=== PATIENT | female | born 2000 | race Caucasian/White ===

== ENCOUNTER 2023-10-07 10:03 | Outpatient (AMB) | payer OTHER, SELFPAY ==
[2023-10-07 10:10] VITALS: BP 108/60; PULSE 69; TEMP 37.2; O2SAT 99; BMI 26.6
--- NOTE | 2023-10-07 10:10 | A.OFFPC_ITS ---
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 Unknown Last office visit/CPE: Years ago Acute issue(s): Skin?tag ? ?Nerve?damage Dislocated knee several times PMHx: Recurrent, R knee subluxation, SurgHx: R eye surgery trauma. FHx: Mom: HTN, Kyphosis.. Dad: HTN. SocHx: No Cigs. EtOH Rarely. MJ intermittent. No other drugs PFSH Medical History (Updated 10/07/23 @ 10:34 by Gustabo Lorenz) No pertinent past medical history Surgical History (Updated 10/07/23 @ 10:17 by Ivania Tobin CMA) H/O eye surgery Family History (Updated 10/07/23 @ 10:20 by Ivania Tobin CMA) Father Substance abuse in family Mother Substance abuse in family Social History (Updated 10/07/23 @ 10:22 by Ivania Tobin CMA) Household Members: None Both parents involved: No Caregiver staying overnight: No Housing: House Are you a primary healthcare administrative assistant to a significant other at home: No Do you presently have visiting nurse or other home services: No 75 years or older and lives alone: No Alcohol intake: current Comment: on occasion Patient Tobacco Use Status: Never used Tobacco e-Cigarette/Vaping Use: Never Used Use of substances other than those prescribed or required for medical reasons: No Have you been hit, kicked, punched, or otherwise hurt by someone within the past year? If so, by whom?: No Do you feel safe in your current relationship?: No Current Relationship Is there a partner from a previous relationship who is making you feel unsafe now?: No Are you made to feel afraid or neglected: No Special kamlesh needs: No Are you DNR?: No Advance Directives: No Advance Directives Information Provided: No Advance Directives on File: No Healthcare Proxy: No service: No Current occupational status: employed Current occupation: [employer] Cognitive needs: No Hearing needs: No Vision needs: No Female Reproductive History Menstrual Age of Menarche: 16 Date of last menstrual period: 09/16/23 Questionnaire PHQ-9 Over the last 2 weeks, how often have you been bothered by any of the following problems? 1. Little interest or pleasure in doing things: not at all 2. Feeling down, depressed, or hopeless: not at all 3. Trouble falling or staying asleep, or sleeping too much: not at all 4. Feeling tired or having little energy: not at all 5. Poor appetite or overeating: not at all 6. Feeling bad about yourself - or that you are a failure or have let yourself or your family down: not at all 7. Trouble concentrating on things, such as reading the newspaper or watching television: not at all 8. Moving or speaking so slowly that other people could have noticed. Or the opposite - being so fidgety or restless that you have been moving around a lot more than usual: not at all 9. Thoughts that you would be better off or of hurting yourself in some way: not at all Total score: 0 Depression Screening Interpretation: Negative Depression Screening Done: Yes 54937 - PHQ-9 Billing: Yes Source: Developed by Drs. Tremaine Bhatt, Shante Stone, Maximino Osullivan and colleagues, with an educational rosalinda from [employer]. Thrive Questionnaire Date Thrive assessed: 10/07/23 I am a: Patient What is your living situation today?: I have a steady place to live Within the past 12 months, did the food you bought not last and you didn't have the money to get more?: Never true Within the past 12 months, did you worry whether your food would run out before you got money to buy more?: Never true Do you have trouble paying for medicines?: No Do you have trouble getting transportation to medical appointments?: No Do you have trouble paying your heating and electricity bill?: No Do you have trouble taking care of your child, family member or friend?: No Do you have trouble with day-to-day activities such as bathing, preparing meals, shopping, managing finances, etc.?: No Are you currently unemployed and looking for a job?: No Are you interested in more education?: No THRIVE Score: 0 AUDIT C Alcohol Use Questionnaire (AUDIT-C) 1. How often do you have a drink containing alcohol?: Monthly or less 2. How many drinks containing alcohol do you have on a typical day when you are drinking?: 1 or 2 3. How often do you have six or more drinks on one occasion?: Never Total Score: 1 MARLI-7 AMB Questionnaire MARLI-7 Date MARLI - 7 assessed: 10/07/23 Feeling nervous, anxious, or on edge: 0 = Not at all Not being able to stop or control worryin = Not at all Worrying too much about different things: 0 = Not at all Trouble relaxin = Not at all Being so restless that it is hard to sit still: 0 = Not at all Becoming easily annoyed or irritable: 0 = Not at all Feeling afraid as if something awful might happen: 0 = Not at all Total MARLI-7 score (0-4 normal; 5-9 mild; 10-14 moderate; 15-21 severe): 0 Source: Developed by Drs. Tremaine Bhatt, Shante Stone, Maximino Osullivan and colleagues, with an educational rosalinda from [employer]. MARLI-7 Assessment Billing MARLI-7 Assessment Tool: MARLI-7 Assessment 69526 Review of Systems Const Denies chills, Denies fatigue, Denies fever(s), Denies headache(s) and Denies weakness ENT Denies dizziness and Denies headache(s) Card Denies chest pain, Denies lightheadedness, Denies dyspnea and Denies other (Palpitations) Resp Denies cough, Denies dyspnea, Denies wheezing and Denies other ( shortness of breath) Musc Denies numbness and Denies tingling Neuro Denies dizziness, Denies headache(s), Denies numbness, Denies tingling, Denies p aresthesias and Denies weakness Psych Denies anxiety and Denies depression Endo Denies fatigue Aller/Immun Denies wheezing Physical exam (Primary Care) BMI result Body Mass Index 26.6 Tobacco/Smoking Status: Tobacco use Status Tobacco use date assessed 10/07/23 10/07/23 10:18 Patient Tobacco Use Status Never used Tobacco 10/07/23 10:22 e-Cigarette/Vaping Use Never Used 10/07/23 10:22 Depression Screening Interpretation: Negative Const General: no acute distress and well developed Nutritional Appearance: well nourished Orientation/consciousness: patient oriented x3 HENMT Head: Yes normocephalic and Yes atraumatic Eyes General: appearance normal, both eyes and all related structures Pupils: Equal, round and reactive pupils present EOM: EOMs intact bilaterally Resp Effort & Inspection: normal respiratory effort Auscultation: clear to auscultation bilaterally Cardio Rate: regular rate Rhythm: regular rhythm Heart sounds: S1 normal heart sound present, S2 normal heart sound present, no gallops, no murmurs and no rubs Neuro General: patient oriented x3 and gait normal Cranial nerves: Yes Equal, round and reactive pupils present Psych Affect: normal affect Assessment and Plan Assessment & Plan (1) Skin tag: Code(s): L91.8 - Other hypertrophic disorders of the skin Plan: She?can?schedule?an?appointment?for?ligation?and/or?cryotherapy (2) Recurrent subluxation of patella: Code(s): M22.10 - Recurrent subluxation of patella, unspecified knee Plan: Recurrent?subluxation?of?right?patella?which?is?currently?reduced. She?wears?a?brace?and?notes?pain?and?numbness?distal?to?her?knee Referred?to?Ortho (3) Laboratory exam ordered as part of routine general medical examination: Code(s): Z00.00 - Encounter for general adult medical examination without abnormal findings Plan: Check?labs Orders: Orders Comprehensive [place]. Panel Fast Today Z00.00 - Encounter for general adult medical examination without abnormal findings Lipid Panel Today Z00.00 - Encounter for general adult medical examination without abnormal findings Prostate Specific Antigen Scr Today Z12.5 - Encounter for screening for malignant neoplasm of prostate TSH reflex Free T4 Today Z00.00 - Encounter for general adult medical examination without abnormal findings Vitamin D 25-OH Total Today E55.9 - Vitamin D deficiency, unspecified Complete Blood Count Auto Diff Today Z00.00 - Encounter for general adult medical examination without abnormal findings Microalbumin, Random (w Creat) Today I10 - Essential (primary) hypertension UA and rflx microscopic Today Z00.00 - Encounter for general adult medical examination without abnormal findings IRON PROFILE Today Z00.00 - Encounter for general adult medical examination without abnormal findings Referrals Orthopedics Referral M22.10 - Recurrent subluxation of patella, unspecified knee Coding Level of Care Code New Pt Level 3 (86351) Diagnoses Skin tag L91.8 Recurrent subluxation of patella M22.10 Laboratory exam ordered as part of routine general medical examination Z00.00 Additional Codes MARLI-7 Assessment Billing - MARLI-7 Assessment Tool: MARLI-7 Assessment [id number] ([id number])
== END 2023-10-07 10:51 | disposition home or self-care (01) ==
PROVIDERS: PCP Family Medicine; Visit Provider Family Medicine
DX: L91.8 Other hypertrophic disorders of the skin (principal); M22.10 Recurrent subluxation of patella, unspecified knee; Z00.00 Encounter for general adult medical examination without abnormal findings
CPT/HCPCS: 99203

== ENCOUNTER 2023-10-07 10:53 | Outpatient (REF) | payer OTHER, SELFPAY ==
[2023-10-07 14:20] LABS: MANUAL DIFF FLAG NO
[2023-10-07 14:23] LABS: Basophils Percent Auto 0.5 % (0-2); Eosinophils Percent Auto 0.7 % (0-4); Hematocrit 39.7 % (37.0-47.0); Hemoglobin 13.5 g/dl (12.0-16.0); Imm Gran Abs Auto 0.02 X10*3/uL (0.00-0.03); Imm Gran Pct Auto 0.4 % (0.0-0.4); Lymphocytes Absolute Auto 1.9 X10*3/uL (1.2-4.9); Lymphocytes Percent Auto 32.8 % (20-40); Mean Corpuscular Hemoglobin 34.6 pg (27.0-33.0); Mean Corpuscular Volume 101.8 fL (80.0-98.0); Mean Platelet Volume 9.8 fL (9.4-12.3); Monocytes Absolute Auto 0.4 X10*3/uL (0.1-1.2); Monocytes Percent Auto 7.6 % (2-11); Neutrophils Absolute Auto 3.3 x10*3/uL (2.0-8.3); Platelet Count 203 X10*3/uL (160-400); Red Cell Distribution Width 12.8 % (11.0-16.0); White Blood Count 5.6 X10*3/uL (4.8-10.8)
[2023-10-07 14:28] LABS: Appearance Urine Clear; Color Urine Yellow; Glucose Urine UA Negative (Negative); Leukocyte Esterase Urine Negative (Negative); Nitrite Urine Negative (Negative); Urine Blood Negative (Negative); Urine Ketones Negative (Negative); Urine Protein Negative (Neg-Trace)
[2023-10-07 14:34] LABS: Creatinine Urine 85.16 mg/dL; Microalbumin Urine < 5.0 mg/L
[2023-10-07 14:47] LABS: Alanine Aminotransferase 18 U/L (0-31); Albumin Level 4.1 g/dL (3.5-5.0); Alkaline Phosphatase 43 U/L (39-117); Anion Gap 8 (12-20); Aspartate Amino Transferase 42 U/L (5-31); Bilirubin Total 0.7 mg/dL (0.0-1.0); Blood Urea Nitrogen 15 mg/dL (9-16); Calcium 9.2 mg/dL (8.4-10.2); Carbon Dioxide 25 mmol/L (22-29); Chloride 108 mmol/L (96-108); Cholesterol 148 mg/dL (<200); Estimated Glomerular Filt Rate > 60; Glucose Fasting 76 mg/dL (60-99); HDL Cholesterol 64 mg/dL (>40); Iron 83 mcg/dL (30-160); LDL Cholesterol Calculated 77 mg/dL (<100); Percent Iron Saturation 29 % (15-50); Potassium 4.2 mmol/L (3.3-5.1); Sodium 137 mmol/L (135-145); Total Iron Binding Capacity 284 mcg/dL (228-428); Total Protein 7.3 g/dL (6.5-8.0); Triglycerides 38 mg/dL (<150); Unsaturated Iron Binding 201 ug/dL
[2023-10-07 15:03] LABS: TSH reflex Free T4 1.92 uIU/mL (0.32-4.0); Vitamin D 25-OH Total 8.4 ng/mL (>30)
[2023-12-28 06:58] LABS: Prostate Specific Antigen Scr < 0.10 ng/mL
== END 2023-10-07 10:54 | disposition home or self-care (01) ==
LOC: HO.WFDLDS 10:53
PROVIDERS: Visit Provider Family Medicine
DX: Z00.00 Encounter for general adult medical examination without abnormal findings (principal); E55.9 Vitamin D deficiency, unspecified; I10 Essential (primary) hypertension
CPT/HCPCS: 36415; 80053; 80061; 81003; 82306; 82570; 83540; 84153; 84443; 85025

== ENCOUNTER 2023-10-29 09:10 | Outpatient (REF) | payer OTHER, SELFPAY | END 2023-10-29 09:11 | disposition home or self-care (01) | LOC: HO.HOSX 09:10 | PROVIDERS: Visit Provider Physician Assistant | DX: Z13.89 Encounter for screening for other disorder (principal) ==

== ENCOUNTER 2024-02-17 08:17 | Outpatient (REF) | payer OTHER, SELFPAY | END 2024-02-17 08:18 | disposition home or self-care (01) | LOC: HO.HOSX 08:17 | PROVIDERS: Visit Provider Orthopaedic Surgery | DX: Z13.89 Encounter for screening for other disorder (principal) ==

== ENCOUNTER 2024-08-25 12:23 | Outpatient (REF) | payer BC, SELFPAY ==
--- OUTSIDE RECORDS SUMMARY | 2024-08-25 13:43 | XMS_ITS | Encounter Summary ---
Author Organization [facility] Address [address] [place] [address] Phone Care Team Providers Care Cube Machine Tender Name Role Phone Provider, Dawood LOVELL Primary Care Provider [phone] Encounter Details Date Type Department Care Team (Late st Contact Info) Description 08/21/2016 Documentation [facility] [place] [address] [place] [address] Family Medicine, Physician [address] [place] [phone] Social History Tobacco Use Types Packs/Day Years [...] on filedocumented in this encounter Care Teams Cube Machine Tender Relationship Specialty Start Date End Date Provider, MD Dawood [address] [place] [address] PCP - General Pediatrics 01/15/22 08/18/22 documented as of this encounter
--- OUTSIDE RECORDS SUMMARY | 2024-08-25 13:43 | XMS_ITS | Encounter Summary ---
Author Organization [facility] Address [address] [place] [address] Phone Care Team Providers Care Grocery Deliverer Name Role Phone Provider, Dawood LOVELL Primary Care Provider [phone] Encounter Details Date Type Department Care Team (Late st Contact Info) Description 07/17/2015 Documentation [facility] [address] [place] [address] Family Medicine, Physician [address], [place] [phone] Social History Tobacco Use Types Packs/Day Years [...] on filedocumented in this encounter Care Teams Grocery Deliverer Relationship Specialty Start Date End Date Provider, MD Dawood [address] [place] [address] PCP - General Pediatrics 01/15/22 08/18/22 documented as of this encounter
--- OUTSIDE RECORDS SUMMARY | 2024-08-25 13:43 | XMS_ITS | Encounter Summary ---
Author Organization [facility] Address [address] [place] [address] Phone Care Team Providers Care Teacher Ballet Name Role Phone Provider, Dawood LOVELL Primary Care Provider [phone] Encounter Details Date Type Department Care Team (Late st Contact Info) Description 08/21/2016 Documentation [facility] Family Medicine [address] [place] [address] Family Medicine, Physician [address] [place], [place] [phone] Social History Tobacco Use Types Packs/Day Years [...] on filedocumented in this encounter Care Teams Teacher Ballet Relationship Specialty Start Date End Date Provider, MD Dawood [address] [place] [address] PCP - General Pediatrics 01/15/22 08/18/22 documented as of this encounter
--- OUTSIDE RECORDS SUMMARY | 2024-08-25 13:43 | XMS_ITS | Encounter Summary ---
Author Organization [facility] Address [address] [place] [address] Phone Care Team Providers Care Medical Coordinator Pesticide Use Name Role Phone Provider, Dawood LOVELL Primary Care Provider Encounter Details Date Type Department Care Team (Late st Contact Info) Description 08/21/2016 Documentation [facility] Family Medicine [address] [place] [address] Family Medicine, Physician [address] [place], [place] [phone] Social History Tobacco Use Types Packs/Day Years [...] on filedocumented in this encounter Care Teams Medical Coordinator Pesticide Use Relationship Specialty Start Date End Date Provider, MD Dawood [address] [place] [address] PCP - General Pediatrics 01/15/22 08/18/22 documented as of this encounter
--- OUTSIDE RECORDS SUMMARY | 2024-08-25 13:43 | XMS_ITS | Encounter Summary ---
Author Organization [facility] Address [address] [place] [address] Phone Care Team Providers Care Tape Cutter Name Role Phone ProviderDawood MD Primary Care Provider Encounter Details Date Type Department Care Team (Late st Contact Info) Description 11/21/2017 Conversion Encounter [facility] [address] [place] [address] Alexandra Cervantes MD [address] [place] [id number] Social History Tobacco Use Types Packs/Day Years [...] on filedocumented in this encounter Care Teams Tape Cutter Relationship Specialty Start Date End Date Provider, MD Dawood [address] [place] [phone] PCP - General Pediatrics 01/15/22 08/18/22 documented as of this encounter
--- OUTSIDE RECORDS SUMMARY | 2024-08-25 13:43 | XMS_ITS | Encounter Summary ---
Author Organization [facility] Address [address] [place] [address] Phone Care Team Providers Care Railway Yard Assistant Name Role Phone Provider, Dawood LOVELL Primary Care Provider [phone] Encounter Details Date Type Department Care Team (Late st Contact Info) Description 08/14/2009 Documentation [facility] [address] [place] [address] Family Medicine, Physician [address], [place] [phone] Social History Tobacco Use Types Packs/Day Years [...] on filedocumented in this encounter Care Teams Railway Yard Assistant Relationship Specialty Start Date End Date Provider, MD Dawood [address] [place] [address] PCP - General Pediatrics 01/15/22 08/18/22 documented as of this encounter
--- OUTSIDE RECORDS SUMMARY | 2024-08-25 13:43 | XMS_ITS | Clinical Summary ---
Author Organization [facility] Address [address] [place] [address] Phone Care Team Providers Care Rv Repairer Name Role Phone Unavailable Primary Care Provider [...] regular cycle 03/10/2018 Overview (03/10/2018): Followed by [facility] provider in [place]. Mom aware pt is on OCPs. Body [...] Completed 03/16/2019, 015 Procedures * Due to [facility] law, this organization might not be sharing sensitive test results. Procedure Name Priority Date/Time Associated Diagnosis Comments CHLAMYDIA AND GONORRHEA, AMPLIFIED Routine 03/16/2019 11:29 AM EDT Screening examination for bacterial and spirochetal disease from Last 3 Months or Most Recently Relevant to Health Maintenance Results * Due to [facility] law, this organization might not be sharing sensitive test results. * Chlamydia and Gonorrhoea, Amplified (03/16/2019 11:29 AM EDT) Chlamydia Trachomatis, DNA Probe NEGATIVE (NEG) [facility] Comment: No Chlamydia Trachomatis RNA detected in this patient's sample ? (REFERENCE RANGE/NORMAL VALUE: NOT DETECTED) ? Note: This test uses diesel engine inspector- mediated amplification method to detect rRNA from C. Trachomatis URINE GC AMP PROBE NEGATIVE (NEG) [facility] Comment: No Neisseria Gonorrhoeae RNA detected in this patient's sample ? (REFERENCE RANGE/NORMAL VALUE: NOT DETECTED) ? NOTE: This test uses diesel engine inspector-mediated amplification method to detect rRNA from N.Gonorrhoeae. [...] without risk of sexual abuse. Consult the [facility] if needed. Contact phone number . Therapeutic failure or success cannot be determined with the Aptima Combo2 assay since nucleic acid may persist following appropriate antimicrobial therapy. The Centers for Disease Control and Prevention (CDC) recommends confirmatory retesting using culture or a different nucleic acid amplification test when positive results occur, if indicated. Testing performed or reported by [facility], a Service of [facility], [address] [place] [address] [place] [address] Urine 03/16/2019 11:2 9 AM EDT 03/16/2019 4:39 PM EDT us Aliyah Nunez NP LAB MICROBIOLOGY - GENERA L ORDERABLES Final Result [facility] from Last 3 Months or Most Recently Relevant to Health Maintenance Insurance [facility] NON PCC
--- OUTSIDE RECORDS SUMMARY | 2024-08-25 13:43 | XMS_ITS | Encounter Summary ---
Author Organization [facility] Address [address] [place] [address] Phone Care Team Providers Care Care Technician Name Role Phone Provider, Dawood LOVELL Primary Care Provider [phone] Encounter Details Date Type Department Care Team (Late st Contact Info) Description 07/17/2015 Documentation EM Family Medicine [address] [place] [address] Family Medicine, Physician [address], [place] [phone] Social History Tobacco Use Types Packs/Day Years [...] on filedocumented in this encounter Care Teams Care Technician Relationship Specialty Start Date End Date Provider, MD [address] [place] [address] PCP - General Pediatrics 01/15/22 08/18/22 documented as of this encounter
--- OUTSIDE RECORDS SUMMARY | 2024-08-25 13:43 | XMS_ITS | Encounter Summary ---
Author Organization [facility] Address [address] [place] [address] Phone Care Team Providers Care Credit Risk Analyst Name Role Phone Provider, Dawood LOVELL Primary Care Provider [phone] Encounter Details Date Type Department Care Team (Late st Contact Info) Description 07/17/2015 Documentation EM Family Medicine [address] [place] [address] Family Medicine, Physician [address] [phone] Social History Tobacco Use Types Packs/Day Years [...] on filedocumented in this encounter Care Teams Credit Risk Analyst Relationship Specialty Start Date End Date Provider, MD [address] [place] [address] PCP - General Pediatrics 01/15/22 08/18/22 documented as of this encounter
--- OUTSIDE RECORDS SUMMARY | 2024-08-25 13:43 | XMS_ITS | Encounter Summary ---
Author Organization [facility] Address [address] [place] [address] Phone Care Team Providers Care Home And Family Living Professor Name Role Phone Provider, Dawood LOVELL Primary Care Provider [phone] Encounter Details Date Type Department Care Team (Late st Contact Info) Description 07/17/2015 Documentation EM Family Medicine [address] [place] [address] Family Medicine, Physician [address] [place], [place] [phone] Social History Tobacco Use Types Packs/Day Years [...] on filedocumented in this encounter Care Teams Home And Family Living Professor Relationship Specialty Start Date End Date Provider, MD [address]wood [address] [place] [address] PCP - General Pediatrics 01/15/22 08/18/22 documented as of this encounter
--- OUTSIDE RECORDS SUMMARY | 2024-08-25 13:43 | XMS_ITS | Encounter Summary ---
Author Organization [facility] Address [address] [place] [address] Phone Care Team Providers Care Shade Maker Name Role Phone Provider, Dawood LOVELL Primary Care Provider [phone] Encounter Details Date Type Department Care Team (Late st Contact Info) Description 02/18/2017 Conversion Encounter [facility] [address] [phone] Social History Tobacco Use Types Packs/Day Years [...] on filedocumented in this encounter Care Teams Shade Maker Relationship Specialty Start Date End Date Provider, MD [address] [place] [address] PCP - General Pediatrics 01/15/22 08/18/22 documented as of this encounter
[2024-08-25 18:17] LABS: Influenza A PCR NEGATIVE (Negative); Influenza B PCR NEGATIVE (Negative); Resp Syncy Virus RNA Qual PCR POSITIVE (Negative); SARS COV2 PCR INHOUSE NEGATIVE (Negative)
== END 2024-08-25 12:24 | disposition home or self-care (01) ==
LOC: HO.LAB 12:23
PROVIDERS: PCP Family Medicine; Visit Provider Nurse Practitioner Family
DX: J06.9 Acute upper respiratory infection, unspecified (principal)
CPT/HCPCS: 0241U; 87880

== ENCOUNTER 2024-08-25 12:23 | Outpatient (AMB) | payer BC, SELFPAY ==
--- NOTE | 2024-08-25 12:29 | MHC.PC.OV ---
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 Required: No Is last menstrual period known: Yes Last menstrual period: 08/22/24 Post menopausal: No Patient : No Allergies No Known Allergies Allergy (Verified 08/25/24 13:05) Medication List - Last Reconciled 08/25/24 by Trish He CNP ferrous sulfate (Feosol) 325 mg PO DAILY magnesium 200 mg PO DAILY Tobacco use date assessed: 08/25/24 Dental Screening Dental Screen Date: 08/25/24 Did you have a dental visit in the last 12 months?: Yes Did you have a dental problem in the last 6 months where you did not have access to dental care?: No Was dental information given to patient?: Patient has dentist HPI HPI Comments History of Present Illness Details 24-year-old female presents complaints of a sore throat, frontal headache, and runny nose and nasal congestion. Her symptoms have been going on for the past 4 days and have progressively worsened. She notes associated intermittent feeling of hot cold. She denies cough, chest pain, fever, body aches, fatigue, weakness. She denies positive sick contact. She has not had viral testing for COVID, flu, or RSV. [facility] Medical History (Updated 08/25/24 @ 13:15 by Trish He CNP) No pertinent past medical history Surgical History (Updated 10/07/23 @ 10:17 by Ivania Tobin CMA) H/O eye surgery Family History (Updated 10/07/23 @ 10:20 by Ivania Tobin CMA) Father Substance abuse in family Mother Substance abuse in family Social History (Updated 10/07/23 @ 10:22 by Ivania Tobin CMA) Household Members: None Both parents involved: No Caregiver staying overnight: No Housing: House Are you a primary long term care phlebotomist to a significant other at home: No Do you presently have visiting nurse or other home services: No 75 years or older and lives alone: No Alcohol intake: current Comment: on occasion Patient Tobacco Use Status: Never used Tobacco e-Cigarette/Vaping Use: Never Used Special kamlesh needs: No Patient : No service: No Current occupational status: employed Current occupation: [employer] Cognitive needs: No Hearing needs: No Vision needs: No Female Reproductive History Menstrual Age of Menarche: 16 Date of last menstrual period: 08/22/24 Questionnaire PHQ-9 Over the last 2 weeks, how often have you been bothered by any of the following problems? 1. Little interest or pleasure in doing things: not at all 2. Feeling down, depressed, or hopeless: not at all 3. Trouble falling or staying asleep, or sleeping too much: not at all 4. Feeling tired or having little energy: not at all 5. Poor appetite or overeating: not at all 6. Feeling bad about yourself - or that you are a failure or have let yourself or your family down: not at all 7. Trouble concentrating on things, such as reading the newspaper or watching television: not at all 8. Moving or speaking so slowly that other people could have noticed. Or the opposite - being so fidgety or restless that you have been moving around a lot more than usual: not at all 9. Thoughts that you would be better off or of hurting yourself in some way: not at all Total score: 0 Depression Screening Interpretation: Negative Depression Screening Done: Yes Source: Developed by Drs. Tremaine Bhatt, Shante Stone, Maximino Osullivan and colleagues, with an educational rosalinda from [employer]. Thrive Questionnaire Date Thrive assessed: 10/07/23 I am a: Patient What is your living situation today?: I have a steady place to live Within the past 12 months, did the food you bought not last and you didn't have the money to get more?: Never true Within the past 12 months, did you worry whether your food would run out before you got money to buy more?: Never true Do you have trouble paying for medicines?: No Do you have trouble getting transportation to medical appointments?: No Do you have trouble paying your heating and electricity bill?: No Do you have trouble taking care of your child, family member or friend?: No Do you have trouble with day-to-day activities such as bathing, preparing meals, shopping, managing finances, etc.?: No Are you currently unemployed and looking for a job?: No Are you interested in more education?: No Please select the resources that you would like help with: None Currently or been in a relationship where the following occur: No concerns reported THRIVE Score: 0 AUDIT C Alcohol Use Questionnaire (AUDIT-C) 1. How often do you have a drink containing alcohol?: 2-4 times a month 2. How many drinks containing alcohol do you have on a typical day when you are drinking?: 1 or 2 3. How often do you have six or more drinks on one occasion?: Never Total Score: 2 MARLI-7 AMB Questionnaire MARLI-7 Date MARLI - 7 assessed: 10/07/23 Feeling nervous, anxious, or on edge: 0 = Not at all Not being able to stop or control worryin = Not at all Worrying too much about different things: 0 = Not at all Trouble relaxin = Not at all Being so restless that it is hard to sit still: 0 = Not at all Becoming easily annoyed or irritable: 0 = Not at all Feeling afraid as if something awful might happen: 0 = Not at all Total MARLI-7 score (0-4 normal; 5-9 mild; 10-14 moderate; 15-21 severe): 0 Source: Developed by Drs. Tremaine Bhatt, Shante Stone, Maximino Osullivan and colleagues, with an educational rosalinda from [employer]. Review of Systems Const Details: Const Denies chills, Denies fatigue, Denies fever(s), Reports headache(s) and Denies weakness ENT Reports as per HPI Card Denies chest pain, Denies lightheadedness, Denies dyspnea and Denies other (Palpitations) Resp Denies cough, Denies dyspnea, Denies wheezing and Denies other ( shortness of breath) GI Denies abdominal pain, Denies melena, Denies hematochezia, Denies change in bowel habits, Denies dyspepsia and Denies nausea Denies hematuria and Denies dysuria Musc Denies abnormal gait, Denies myalgias, Denies arthralgias, Denies numbness and Denies tingling Skin/Breast Denies rash, Denies unusual bruising and Denies wounds Neuro Denies abnormal gait, Denies dizziness, Reports headache(s), Denies memory loss, Denies numbness, Denies Sensory deficit (Neuro), Denies tingling and Denies weakness Psych Denies anxiety, Denies depression, Denies memory loss Endo Denies cold intolerance, Denies fatigue, Denies heat intolerance, Denies polydipsia and Denies polyuria Aller/Immun Denies wheezing Physical exam (Primary Care) Vital Signs: Last Vital Signs Temp 98.1 F 08/25/24 12:34 Pulse 76 08/25/24 12:34 Resp 16 08/25/24 12:34 BP 122/56 L 08/25/24 12:34 Pulse Ox 99 08/25/24 12:34 Oxygen Delivery Method Simple Mask 08/25/24 12:34 BMI result Body Mass Index 30.6 Tobacco/Smoking Status: Tobacco use Status Tobacco use date assessed 08/25/24 08/25/24 12:37 Patient Tobacco Use Status Never used Tobacco 08/25/24 12:31 e-Cigarette/Vaping Use Never Used 08/25/24 12:31 PHQ-9: PHQ-9 Score PHQ-9: Total score 0 08/25/24 12:31 Depression Screening Interpretation: Negative Thrive Assessment: Date of Thrive Assessment Date Thrive assessed 10/07/23 08/25/24 12:31 Currently or been in a relationship where the following occur: No concerns reported Const Other: General: no acute distress and well developed Nutritional Appearance: well nourished Orientation/consciousness: patient oriented x3 HENMT Head is normocephalic Bilateral ear canal and TM are normal Nasal turbinates and oropharynx are pink and moist Sinuses are nontender with palpation No auricular or cervical lymphadenopathy Eyes General: appearance normal, both eyes and all related structures Pupils: Equal, round and reactive pupils present EOM: EOMs intact bilaterally Resp Effort & Inspection: normal respiratory effort Auscultation: clear to auscultation bilaterally Cardio Rate: regular rate Rhythm: regular rhythm Heart sounds: S1 normal heart sound present, S2 normal heart sound present, no gallops, no murmurs and no rubs GI Palpation (GI): No Abdominal aortic bruit present, Soft to palpation, nontender, No hepatosplenomegaly present and No Rebound tenderness present Auscultation: normal bowel sounds General: Yes no CVA tenderness Back/Spine/Pelvis Back: no CVA tenderness Cervical Spine: cervical ROM normal and No Cervical spine tenderness Thoracic/Lumbar Spine: thoraco-lumbar ROM normal, No pain with thoraco-lumbar ROM, No thoracic spinal tenderness and No lumbar spinal tenderness Extrem General: Yes normal to inspection, No edema and No calf tenderness Skin General: warm and dry. Normal skin color. Normal skin turgor Neuro General: patient oriented x3, gait normal and no focal neuro deficit Cranial nerves: Yes Equal, round and reactive pupils present Cognition (Neuro): normal cognition Gait exam (Neuro): Normal gait present Sensory Exam: No Sensory deficit (Neuro) Psych Appearance: grossly normal Affect: normal affect Attitude: cooperative Thought process: Normal thought process present Results AMB Rapid Strep AMB Rapid Strep Negative Last Edit by Cordelia Sandhu on 08/25/24 13:30 Coding Level of Care Code Est Pt Level 3 (04154) Diagnoses Viral upper respiratory illness J06.9 Assessment & Plan Assessment & Plan (1) Viral upper respiratory illness: Code(s): J06.9 - Acute upper respiratory infection, unspecified Category: Medical Plan: Likely viral illness though possibly allergies No exam evidence of bacterial infection Rapid strep test is negative. Viral illness There is no antibiotic medication for viruses.? They must run their course.? Most average 5-7 days but 7-10 days is not uncommon and up to 14 days is still possible.? A cough is often the last symptom to resolve and this can last for weeks in some cases. Rest Hydrate well -? Drink plenty of fluids.? Especially water. Tylenol or ibuprofen for muscle aches, headache, fever/discomfort May gargle with lukewarm salt water as needed May take antihistamine such as Claritin or Zyrtec once a day Cannot rule out COVID-19/RSV/Flu infection Nasal swab acquired and will be sent to the lab Return for new or worsening symptoms Verbalized understanding and agreed with treatment plan. Orders: Orders SARS-CoV2/FLU/RSV Today J06.9 - Acute upper respiratory infection, unspecified AMB Rapid Strep Screen Today Z13.9 - Encounter for screening, unspecified
[2024-08-25 12:34] VITALS: BP 122/56; PULSE 76; RESP 16; TEMP 36.7; O2SAT 99; BMI 30.6
--- OUTSIDE RECORDS SUMMARY | 2024-08-25 13:04 | XMS_ITS | Encounter Summary ---
Author Organization [facility] Address [address] [place] [address] Phone Care Team Providers Care Dockworker Name Role Phone Provider, Dawood LOVELL Primary Care Provider [phone] Encounter Details Date Type Department Care Team (Late st Contact Info) Description 08/21/2016 Documentation [facility] [place] Family Medicine [address] [place] [address] Family Medicine, Physician [address], [place] [id number] Social History Tobacco Use Types Packs/Day Years Used Date Smoking Tobacco: Never Assessed Comments Unknown Sex and Gender Information Value Date Recorded Sex Assigned at Not on file Legal Sex Female 6:12 PM EDT Gender Identity Not on file Sexual Orientation Straight 03/16/2019 11 :17 AM EDT documented as of this encounter Plan of Treatment Not on file documented as of this encounter Visit Diagnoses Not on filedocumented in this encounter Care Teams Dockworker Relationship Specialty Start Date End Date Provider, MD Dawood [address] [place] [address] PCP - General Pediatrics 01/15/22 08/18/22 documented as of this encounter
--- OUTSIDE RECORDS SUMMARY | 2024-08-25 13:04 | XMS_ITS | Clinical Summary ---
Author Organization [facility] Address [address] [place] [phone] Phone Care Team Providers Care Regional Wildlife Agent Name Role Phone Unavailable Primary Care Provider Unavailabl e Allergies No known active allergies Medications CRYSELLE-28 0.3-30 MG-MCG per tablet Take 1 tablet by mouth once daily. 3 02/11/2018 Active TRI-ESTARYLLA 0.18/0.215/0.25 MG-35 MCG per tablet Take 1 tablet by mouth once daily. 5 05/05/2019 Active Active Problems Problem Noted Date Diagnosed Date Influenza vaccine refused 03/16/2019 Overview (03/16/2019): Offered at 03/2019 but declined by mom today, counseling offered, questions answered. Menorrhagia with regular cycle 03/10/2018 Overview (03/10/2018): Followed by LAYOUT TECHNICIAN provider in [place]. Mom aware pt is on OCPs. Body mass index, pediatric, greater than or equal to 95th percentile for age 0701/04/2013 Immunizations Immunization Administration Dates Next Due DTaP 04/26/2008, 4,2002,10/24,2002 HPV Vaccine 9 Valent 08/20/2016,06/06/2015 Hep A, ped/adol 08/20/2016,06/06/2015 Hep B, ped/adol 03/27/2003,2002,2002 Hib (PRP-T) 10/01/2003, 3,2002,08/25 IPV 04/26/2008, 3,2002,08/25 Influenza, injectable, quadrivalent 04/29/2011,1 08/07/2009,04/26/2008 Influenza, injectable, quadr ivalent, preservative free 03/15/2020,04/26/2008 Influenza, injectable, triva lent, preservative free 08/05/2004,04/25/2004 Influenza, injectable,nona valent, preservative free, pediatric 08/05/2004,04/25/2004 Influenza, intranasal, quadrivalent 06/06/2015 MMR 04/26/2008,06/20/2003 Meningococcal Conj (Menactra) MCV4P 03/16/2019,1 08/07/2014 Pneumococcal Conjugate 2002,2002, Tdap 06/06/2015 Varicella 04/26/2008,06/20/2003 Family History Relation Name Status Comments Father Alive age: 31 yr Father's Brother Alive Father's Sister Alive Maternal Grandfather cancer/ pancreatic Maternal Grandmother Alive Materna l grandmother: Hypertension, Stroke (passed 1.5 yr ago)/hypertension Mother Alive Mother: Asthma/ asthma/ kyphosis/scoliosis + braced age: 37 yr Other Alive Siblings: Healt hy Paternal Grandfather Alive Paternal Grandmother Alive Paterna l grandmother: Thyroid disease/thyroid Social History Tobacco Use Types Packs/Day Years Used Date Smoking Tobacco: Never Smokeless Tobacco: Never Comments:Never smoker Alcohol Use Standard Drinks/Week Comments No 0 (1 standard drink = 0.6 oz pur e alcohol) Hunger/Food Answer Date Recorded In the last 12 months, did y ou or your family ever eat less than you felt you should because there wasn't enough money for food? No 03/16/2019 Stable Housing Answer Date Recorded Are you worried that in the next 2 months you may not have stable housing? No 03/16/2019 Transportation Concerns Answer Date Rec orded In the last 12 months, have you or your family ever had to go without healthcare because you didn't have a way to get there? No 03/16/2019 Hazards in Home Answer Date Recorded Think about the place you li ve. Do you have problems with any of the following? Pests (mice or roaches), mold, no/not working smoke detectors, water leaks, no window guards. No 2018 Financing Utilities Answer Date Recorde d In the last 12 months, has t he electric, gas, oil, or water company threatened to shut off your services in your home? No 03/16/2019 Safety at Home Answer Date Recorded Are you or your family worried about feeling saf e in your home? No 03/16/2019 Outside Support Answer Date Recorded Do you feel that you need mo re support from other people or programs to help you care for yourself or your family? No 03/16/2019 Understanding Health Concerns Answer Da te Recorded Do you need help understandi ng your or your child's healthcare needs (diagnosis, medications, plan, etc.)? No 03/16/2019 Financing Health Concerns Answer Date R ecorded In the last 12 months, was t here a time when your child needed to see a doctor or get medications or supplies but could not because of cost? No 03/16/2019 Missing School or Work Answer Date Saw rded Did you or your child miss s chool or work because of a health problem that could have been avoided? No 03/16/2019 Comments Unknown Sex and Gender Information Value Date Recorded Sex Assigned at Not on file Legal Sex Female 6:12 PM EDT Gender Identity Not on file Sexual Orientation Straight 03/16/2019 11 :17 AM EDT Last Filed Vital Signs Vital Sign Reading Time Taken Comments Blood Pressure 115/79 07/11/2019 11:53 AM EST Pulse 94 07/11/2019 11:53 AM EST Temperature 37.3 ??C (99.2 ??F) 07/11/2019 11:[address] Respiratory Rate - - Oxygen Saturation - - Inhaled Oxygen Concentration - - Weight 99.1 kg (218 lb 9 oz) 07/11/2019 11:53 AM EST Height 174 cm (5' 8.5 ) 03/16/2019 10:29 AM EDT Body Mass Index - - Plan of Treatment Health Maintenance Due Date Last Done Comments Men B Vaccine (1 of 2 - Standard) 2018 Influenza Vaccines (#1) 2024 03/15/20 20, 06/06/2015, 04/29/2011, Additional history exists COVID-19 Vaccine ( - season) 2024 DTaP,Tdap,and Td Vaccines (7 - Td or Tdap) 06/06/2025 06/06/2015, 04/26/2008, 10/01/2003, Additional history exists Pneumococcal Vaccine Aged Out 2002, 2002, 2002 No longer eligible based on patient's age to complete this topic Hepatitis B Vaccines Completed 03/27/2003, 2002, 2002 HIB Vaccines Completed 10/01/2003, 12/04, 2002, Additional history exists IPV Vaccines Completed 04/26/2008, 03/06, 2002, Additional history exists MMR Vaccines Completed 04/26/2008, 06/20/2003 Varicella Vaccines Completed 04/26/2008, 06/20/2003 HPV Vaccines Completed 08/20/2016, 06/06/2015 Hepatitis A Vaccines Completed 08/20/2016, 06/06/20 15 Meningococcal Vaccine Completed 03/16/2019, 015 Procedures * Due to [place] law, this organization might not be sharing sensitive test results. Procedure Name Priority Date/Time Associated Diagnosis Comments CHLAMYDIA AND GONORRHEA, AMPLIFIED Routine 03/16/2019 11:29 AM EDT Screening examination for bacterial and spirochetal disease from Last 3 Months or Most Recently Relevant to Health Maintenance Results * Due to [place] law, this organization might not be sharing sensitive test results. * Chlamydia and Gonorrhoea, Amplified (03/16/2019 11:29 AM EDT) Chlamydia Trachomatis, DNA Probe NEGATIVE (NEG) [facility] Comment: No Chlamydia Trachomatis RNA detected in this patient's sample ? (REFERENCE RANGE/NORMAL VALUE: NOT DETECTED) ? Note: This test uses layout technician- mediated amplification method to detect rRNA from C. Trachomatis URINE GC AMP PROBE NEGATIVE (NEG) [facility] Comment: No Neisseria Gonorrhoeae RNA detected in this patient's sample ? (REFERENCE RANGE/NORMAL VALUE: NOT DETECTED) ? NOTE: This test uses layout technician-mediated amplification method to detect rRNA from N.Gonorrhoeae. A negative result does not preclude infection. In the case of a negative urine result, testing of an endocervical(female) or urethral (male) specimen is recommended if there is high clinical suspicion of infection. Due to very high sensitivity of Nucleic Acid Amplification Test, false positive results may occur. Therefore, specimen handling is extremely important. In patients in whom the disease is unlikely, additional sample for testing should be considered after an initial positive result. The performance characteristics of this test have not been evaluated in children. The Aptima Combo2 assay is not intended for the evaluation of suspected sexual abuse or for other medico-legal indications. The ordering provider should assess if the patient had consensual sex without risk of sexual abuse. Consult the [facility] if needed. Contact phone number . Therapeutic failure or success cannot be determined with the Aptima Combo2 assay since nucleic acid may persist following appropriate antimicrobial therapy. The Centers for Disease Control and Prevention (CDC) recommends confirmatory retesting using culture or a different nucleic acid amplification test when positive results occur, if indicated. Testing performed or reported by [facility], a Service of [facility], [address] [place] [address] [place] [address] Urine 03/16/2019 11:2 9 AM EDT 03/16/2019 4:39 PM EDT us Aliyah Nunez NP LAB MICROBIOLOGY - GENERA L ORDERABLES Final Result [facility] from Last 3 Months or Most Recently Relevant to Health Maintenance Insurance [employer] NON PCC
--- OUTSIDE RECORDS SUMMARY | 2024-08-25 13:04 | XMS_ITS | Encounter Summary ---
Author Organization [facility] Address [address] [place] [address] Phone Care Team Providers Care Yarn Handler Name Role Phone ProviderDawood MD Primary Care Provider [phone] Encounter Details Date Type Department Care Team (Late st Contact Info) Description 11/21/2017 Conversion Encounter [facility] [address] [place] [address] Alexandra Cervantes MD [address] [place] [phone] Social History Tobacco Use Types Packs/Day Years [...] on filedocumented in this encounter Care Teams Yarn Handler Relationship Specialty Start Date End Date Provider, MD Dawood [address] [place] [phone] PCP - General Pediatrics 01/15/22 08/18/22 documented as of this encounter
--- OUTSIDE RECORDS SUMMARY | 2024-08-25 13:04 | XMS_ITS | Encounter Summary ---
Author Organization [facility] Address [address] [place] [address] Phone Care Team Providers Care Underground Mine Machinery Mechanic Name Role Phone Provider, Dawood LOVELL Primary Care Provider [phone] Encounter Details Date Type Department Care Team (Late st Contact Info) Description 08/21/2016 Documentation [facility] Family Medicine [address] [place] [address] Family Medicine, Physician [address] [place], [place] [phone] Social History Tobacco Use Types Packs/Day Years [...] on filedocumented in this encounter Care Teams Underground Mine Machinery Mechanic Relationship Specialty Start Date End Date Provider, MD Dawood [address] [place] [address] PCP - General Pediatrics 01/15/22 08/18/22 documented as of this encounter
--- OUTSIDE RECORDS SUMMARY | 2024-08-25 13:05 | XMS_ITS | Encounter Summary ---
Author Organization [facility] Address [address] [place] [address] Phone Care Team Providers Care Pedal Assembler Name Role Phone Provider, Dawood LOVELL Primary Care Provider [phone] Encounter Details Date Type Department Care Team (Late st Contact Info) Description 07/17/2015 Documentation [facility] [address] [place] [address] Family Medicine, Physician [address] [place], [place] [phone] Social History Tobacco Use Types Packs/Day Years [...] on filedocumented in this encounter Care Teams Pedal Assembler Relationship Specialty Start Date End Date Provider, MD Dawood [address] [place] [address] PCP - General Pediatrics 01/15/22 08/18/22 documented as of this encounter
--- OUTSIDE RECORDS SUMMARY | 2024-08-25 13:05 | XMS_ITS | Encounter Summary ---
Author Organization [facility] Address [address] [place] [address] Phone Care Team Providers Care Maintenance Department Manager Name Role Phone Provider, Dawood LOVELL Primary Care Provider [phone] Encounter Details Date Type Department Care Team (Late st Contact Info) Description 02/18/2017 Conversion Encounter [facility] [address] [phone] Social History Tobacco Use Types Packs/Day Years Used Date Smoking Tobacco: Never Comments:Never smoker Comments Unknown Sex and Gender Information Value Date Recorded Sex Assigned at Not on file Legal Sex Female 6:12 PM EDT Gender Identity Not on file Sexual Orientation Straight 03/16/2019 11 :17 AM EDT documented as of this encounter Plan of Treatment Not on file documented as of this encounter Visit Diagnoses Not on filedocumented in this encounter Care Teams Maintenance Department Manager Relationship Specialty Start Date End Date Provider, MD Dawood [address] [place] [address] PCP - General Pediatrics 01/15/22 08/18/22 documented as of this encounter
--- OUTSIDE RECORDS SUMMARY | 2024-08-25 13:05 | XMS_ITS | Encounter Summary ---
Author Organization [facility] Address [address] [place] [address] Phone Care Team Providers Care Production Welding Supervisor Name Role Phone Provider, Dawood LOVELL Primary Care Provider [phone] Encounter Details Date Type Department Care Team (Late st Contact Info) Description 07/17/2015 Documentation [facility] [address] [place] [address] Family Medicine, Physician [address], [place] [phone] Social History Tobacco Use Types Packs/Day Years [...] on filedocumented in this encounter Care Teams Production Welding Supervisor Relationship Specialty Start Date End Date Provider, MD Dawood [address] [place] [address] PCP - General Pediatrics 01/15/22 08/18/22 documented as of this encounter
--- OUTSIDE RECORDS SUMMARY | 2024-08-25 13:05 | XMS_ITS | Encounter Summary ---
Author Organization [facility] Address [address] [place] [address] Phone Care Team Providers Care Caseworker Intake Name Role Phone Provider, Dawood LOVELL Primary Care Provider [phone] Encounter Details Date Type Department Care Team (Late st Contact Info) Description 08/21/[address] [facility] Family Medicine [address] [place] [address] Family Medicine, Physician [address] [place] [phone] Social History Tobacco Use Types Packs/Day Years [...] on filedocumented in this encounter Care Teams Caseworker Intake Relationship Specialty Start Date End Date Provider, MD Dawood [address] [place] [address] PCP - General Pediatrics 01/15/22 08/18/22 documented as of this encounter
--- OUTSIDE RECORDS SUMMARY | 2024-08-25 13:05 | XMS_ITS | Encounter Summary ---
Author Organization [facility] Address [address] [place] [address] Phone Care Team Providers Care Healthcare Management Consultant Name Role Phone Provider, Dawood LOVELL Primary Care Provider [phone] Encounter Details Date Type Department Care Team (Late st Contact Info) Description 08/14/2009 Documentation [facility] [address] [place] [address] Family Medicine, Physician [address] [place], [place] [phone] Social History Tobacco Use Types Packs/Day Years [...] on filedocumented in this encounter Care Teams Healthcare Management Consultant Relationship Specialty Start Date End Date Provider, MD Dawood [address] [place] [address] PCP - General Pediatrics 01/15/22 08/18/22 documented as of this encounter
--- OUTSIDE RECORDS SUMMARY | 2024-08-25 13:05 | XMS_ITS | Encounter Summary ---
Author Organization [facility] Address [address] [place] [address] Phone Care Team Providers Care Running Rigger Name Role Phone Provider, Dawood LOVELL Primary Care Provider [phone] Encounter Details Date Type Department Care Team (Late st Contact Info) Description 07/17/2015 Documentation [facility] [address] [place] [address] Family Medicine, Physician [address] [phone] Social History Tobacco Use Types Packs/Day Years [...] on filedocumented in this encounter Care Teams Running Rigger Relationship Specialty Start Date End Date Provider, MD Dawood [address] [place] [address] PCP - General Pediatrics 01/15/22 08/18/22 documented as of this encounter
--- OUTSIDE RECORDS SUMMARY | 2024-08-25 13:05 | XMS_ITS | Encounter Summary ---
Author Organization [facility] Address [address] [place] [address] Phone Care Team Providers Care Communications Field Technician Name Role Phone Provider, Dawood LOVELL Primary Care Provider [phone] Encounter Details Date Type Department Care Team (Late st Contact Info) Description 07/17/2015 Documentation [facility] [address] [place] [address] Family Medicine, Physician [address] [place], [place] [phone] Social History Tobacco Use Types Packs/Day Years [...] on filedocumented in this encounter Care Teams Communications Field Technician Relationship Specialty Start Date End Date Provider, MD Dawood [address] [place] [address] PCP - General Pediatrics 01/15/22 08/18/22 documented as of this encounter
== END 2024-08-25 15:08 | disposition home or self-care (01) ==
PROVIDERS: PCP Family Medicine; Visit Provider Nurse Practitioner Family
DX: Z13.9 Encounter for screening, unspecified (principal); J06.9 Acute upper respiratory infection, unspecified

== ENCOUNTER 2025-01-01 07:02 | Outpatient (REF) | payer BC, SELFPAY ==
--- NOTE | ~2025-01-01 | XR_ITS ---
EXAMINATION: XR KNEE 3 VIEWS RIGHT HISTORY: M17.11 - Unilateral primary osteoarthritis, right knee COMPARISON: There are no prior studies available for comparison. FINDINGS: Standing AP views of both knees and additional lateral and sunrise patellar views views of the right are submitted. Osseous mineralization is normal. There is no fracture or dislocation. The joint spaces are preserved. The soft tissues are unremarkable. There is no joint effusion. XR/XR knee RT 3V IMPRESSION: Unremarkable examination of the right knee. Electronically signed by: Tremaine Whitaker MD 01/01/2025 10:24 AM EDT
--- OUTSIDE RECORDS SUMMARY | 2025-01-02 07:10 | XMS_ITS | Clinical Summary ---
Author Organization [facility] Address [address] [place] [phone] Phone Care Team Providers Care Technical Developer Name Role Phone Unavailable Primary Care Provider [...] regular cycle 03/10/2018 Overview (03/10/2018): Followed by [facility] provider in [place]. Mom aware pt is on OCPs. Body [...] Completed 03/16/2019, 015 Procedures * Due to [facility] law, this organization might not be sharing sensitive test results. Procedure Name Priority Date/Time Associated Diagnosis Comments CHLAMYDIA AND GONORRHEA, AMPLIFIED Routine 03/16/2019 11:29 AM EDT Screening examination for bacterial and spirochetal disease from Last 3 Months or Most Recently Relevant to Health Maintenance Results * Due to [place] [employer] law, this organization might not be sharing sensitive test results. * Chlamydia and Gonorrhoea, Amplified (03/16/2019 11:29 AM EDT) Chlamydia Trachomatis, DNA Probe NEGATIVE (NEG) [facility] Comment: No Chlamydia Trachomatis RNA detected in this patient's sample (REFERENCE RANGE/NORMAL VALUE: NOT DETECTED) Note: This test uses power originator- mediated amplification method to detect rRNA from C. Trachomatis URINE GC AMP PROBE NEGATIVE (NEG) [facility] Comment: No Neisseria Gonorrhoeae RNA detected in this patient's sample (REFERENCE RANGE/NORMAL VALUE: NOT DETECTED) NOTE: This test uses power originator-mediated amplification method to detect rRNA from N.Gonorrhoeae. [...] without risk of sexual abuse. Consult the [facility] if needed. Contact phone number . Therapeutic failure or success cannot be determined with the Aptima Combo2 assay since nucleic acid may persist following appropriate antimicrobial therapy. The Centers for Disease Control and Prevention (CDC) recommends confirmatory retesting using culture or a different nucleic acid amplification test when positive results occur, if indicated. Testing performed or reported by [facility], a Service of [facility], [facility] [place] [address] Urine 03/16/2019 11:2 9 AM EDT 03/16/2019 4:39 PM EDT Aliyah Nunez NP LAB MICROBIOLOGY - GENERA L ORDERABLES Final Result [facility] from Last 3 Months or Most Recently Relevant to Health Maintenance Insurance [facility] NON PCC
== END 2025-01-01 07:03 | disposition home or self-care (01) ==
LOC: HO.HOSX 07:02
PROVIDERS: Visit Provider Physician Assistant
DX: M17.11 Unilateral primary osteoarthritis, right knee (principal)
CPT/HCPCS: 73562

== ENCOUNTER 2025-01-01 09:48 | Outpatient (AMB) | payer BC, SELFPAY ==
[2025-01-01 10:07] VITALS: BMI 30.6
--- NOTE | 2025-01-01 10:07 | A.OFFVIS_ITS ---
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 Patient was seen by her PCP in the past for knee pain and numbness. She was referred to orthopedics. Patient reports her symptoms have been present since she was 14 years of age, stating her knee dislocated while performing a cart wheel. She attended physical therapy shorty after her injury. Her pain is located around her knee that travels down her leg. She also mentions discomfort in her hip and tailbone, stating feels a shifting inside and does not feel right. 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 She states when she was 14 she had a patella dislocation where she had to put it back into place. She states she was seen later by Ortho, had PT . No surgical intervention. She had some relief with PT but continued to have instability. She feels she has had about 5 dislocations in the last 10 years. She has difficulty with stairs. She has a sensation where she feels her knee is tight. She also has some numbness that go down the leg. [facility] Medical History (Updated 01/01/25 @ 10:33 by Jane Spence PA-C) No pertinent past medical history Surgical History H/O eye surgery Family History (Updated 10/07/23 @ 10:20 by Ivania Tobin CMA) Father Substance abuse in family Mother Substance abuse in family Social History (Updated 01/01/25 @ 10:11 by JO-ANN Gardner) Household Members: None Both parents involved: No Caregiver staying overnight: No Housing: House Are you a primary healthcare applications analyst to a significant other at home: No Do you presently have visiting nurse or other home services: No 75 years or older and lives alone: No Alcohol intake: current Comment: on occasion Patient Tobacco Use Status: Never used Tobacco e-Cigarette/Vaping Use: Never Used Special kamlesh needs: No service: No Current occupational status: employed Current occupation: [employer] Cognitive needs: No Hearing needs: No Vision needs: No Female Reproductive History Menstrual Age of Menarche: 16 Review of Systems Const All systems reviewed & are unremarkable except as noted in HPI and below Physical Exam Vital Signs: BMI result Body Mass Index 30.6 Const General: cooperative and no acute distress Orientation/consciousness: patient oriented x3 Resp Effort & Inspection: normal respiratory effort and able to speak in complete sentences Cardio Peripheral pulses: Peripheral pulses 2+ throughout Neuro General: patient oriented x3 Extrem Other: Right knee is normal to inspection there is no joint effusion. She has mild lateral retropatellar tenderness present and a positive J-sign with range of motion. Calf supple and nontender neurovascularly intact. Results Reviewed Results Reviewed: X-rays of the right knee obtained in the office today and reviewed by me show mild valgus alignment with well-preserved joint space. Assessment & Plan Assessment & Plan (1) Recurrent subluxation of patella: Code(s): M22.10 - Recurrent subluxation of patella, unspecified knee Category: Medical (2) Recurrent right knee instability: Code(s): M23.51 - Chronic instability of knee, right knee Category: Medical Plan I recommend a course of physical therapy to work on a refresher course for strengthening and conditioning exercises to stabilize the patella. She was also fit for a patellar stabilizing knee brace in the office today. An MRI has also been ordered of the right knee to further evaluate the ligamentous structures given the recurrent dislocations and ongoing limitations with activities. Once this is complete I will contact her to discuss the next step in her treatment. Orders: Orders XR knee RT 3V Today M17.11 - Unilateral primary osteoarthritis, right knee Coding Level of Care Code New Pt Level 3 (20569) Complex EM visit Add On G2211 Diagnoses Recurrent subluxation of patella M22.10 Recurrent right knee instability M23.51
--- OUTSIDE RECORDS SUMMARY | 2025-01-01 10:17 | XMS_ITS | Clinical Summary ---
Author Organization [facility] Address [address] [place] [address] Phone Care Team Providers Care Account Support Rep Name Role Phone Unavailable Primary Care Provider [...] regular cycle 03/10/2018 Overview (03/10/2018): Followed by [facility]ER provider in [place]. Mom aware pt is on OCPs. Body [...] 94 07/11/2019 11:53 AM EST Temperature 37.3 C (99.2 F) 07/11/2019 11:53 AM EST Respiratory Rate - - Oxygen Saturation - [...] Completed 03/16/2019, 015 Procedures * Due to [facility] law, this organization might not be sharing sensitive test results. Procedure Name Priority Date/Time Associated Diagnosis Comments CHLAMYDIA AND GONORRHEA, AMPLIFIED Routine 03/16/2019 11:29 AM EDT Screening examination for bacterial and spirochetal disease from Last 3 Months or Most Recently Relevant to Health Maintenance Results * Due to [place] [employer] law, this organization might not be sharing sensitive test results. * Chlamydia and Gonorrhoea, Amplified (03/16/2019 11:29 AM EDT) Chlamydia Trachomatis, DNA Probe NEGATIVE (NEG) [facility] Comment: No Chlamydia Trachomatis RNA detected in this patient's sample (REFERENCE RANGE/NORMAL VALUE: NOT DETECTED) Note: This test uses patient service associate- mediated amplification method to detect rRNA from C. Trachomatis URINE GC AMP PROBE NEGATIVE (NEG) [facility] Comment: No Neisseria Gonorrhoeae RNA detected in this patient's sample (REFERENCE RANGE/NORMAL VALUE: NOT DETECTED) NOTE: This test uses patient service associate-mediated amplification method to detect rRNA from N.Gonorrhoeae. [...] of sexual abuse. Consult the [facility] if needed. Contact phone number . Therapeutic failure or success cannot be determined with the Aptima Combo2 assay since nucleic acid may persist following appropriate antimicrobial therapy. The Centers for Disease Control and Prevention (CDC) recommends confirmatory retesting using culture or a different nucleic acid amplification test when positive results occur, if indicated. Testing performed or reported by [facility], a Service of [facility], [facility] [place] [address] Urine 03/16/2019 11:2 9 AM EDT 03/16/2019 4:39 PM EDT Aliyah Nunez NP LAB MICROBIOLOGY - GENERA L ORDERABLES Final Result [facility] from Last 3 Months or Most Recently Relevant to Health Maintenance Insurance [facility] NON PCC
== END 2025-01-01 10:36 | disposition home or self-care (01) ==
LOC: HO.HOS 09:49
PROVIDERS: PCP Family Medicine; Visit Provider Physician Assistant
DX: M22.11 Recurrent subluxation of patella, right knee (principal); M23.51 Chronic instability of knee, right knee
CPT/HCPCS: 99203

== ENCOUNTER → 2025-01-01 09:58 | Outpatient (BNV) | payer BC, SELFPAY | PROVIDERS: Visit Provider Radiology Diagnostic Radiology | DX: M17.11 Unilateral primary osteoarthritis, right knee (principal) | CPT/HCPCS: 73562 ==

== ENCOUNTER 2025-01-12 18:14 | Outpatient (REF) | payer BC, SELFPAY ==
--- NOTE | ~2025-01-12 | MR_ITS ---
EXAMINATION: MRI RIGHT KNEE WITHOUT CONTRAST HISTORY: M23.51 - Chronic instability of knee, right knee COMPARISON: Correlation is made to plain films of the right knee dated 01/01/2025. TECHNIQUE: Coronal T1 and fat-suppressed proton density, sagittal proton density and fat-suppressed proton density, and axial fat suppressed T2 weighted MR images of the right knee were obtained. FINDINGS: There is patella pricilla. There is also slight lateral displacement of the patella. The trochlear groove appears somewhat shallow. Bone marrow: Bone marrow signal intensity is normal. Joint effusion: There is a trace joint effusion. Muñoz's cyst: There is no Muñoz's cyst. Articular cartilage: Intact Muscles/soft tissues: The visualized muscles demonstrate normal signal intensity. There is mild edema of the superolateral aspect of Hoffa's fat pad. Anterior cruciate ligament: Intact Posterior cruciate ligament: Intact Medial collateral ligament: Intact Lateral collateral ligament: Intact Medial meniscus: Intact Lateral meniscus: Intact Flexor mechanism: The popliteus, gastrocnemius, and hamstring tendons are intact. Quadriceps tendon: Intact Patellar tendon: Intact Patellar retinacula: Intact MR/MR knee RT wo con IMPRESSION: Patella pricilla with slight lateral displacement of the patella, and mild edema of the superolateral aspect of Hoffa's fat pad. The trochlear groove appears somewhat shallow. Electronically signed by: Tremaine Whitaker MD 01/15/2025 08:14 AM EDT
== END 2025-01-12 18:15 | disposition home or self-care (01) ==
LOC: HO.MRI 18:14
PROVIDERS: PCP Family Medicine; Visit Provider Physician Assistant
DX: M23.51 Chronic instability of knee, right knee (principal); M22.10 Recurrent subluxation of patella, unspecified knee
CPT/HCPCS: 73721

== ENCOUNTER → 2025-01-12 18:19 | Outpatient (BNV) | payer BC, SELFPAY | PROVIDERS: PCP Family Medicine; Visit Provider Radiology Diagnostic Radiology | DX: M23.51 Chronic instability of knee, right knee (principal) | CPT/HCPCS: 73721 ==

== ENCOUNTER 2025-01-29 15:24 | Outpatient (AMB) | payer BC, SELFPAY ==
--- NOTE | 2025-01-29 15:25 | A.OFFVIS_ITS ---
Vital Signs 01/29/25 15:26 Height 5 ft 9 in Weight 207 lb BMI 30.6 Intake Visit Reasons: TH- RT knee MRI review Intake Note: Stephanie is a 24 year old female who is scheduled today for an MRI review of right knee. Patient was referred to physical therapy. Patient reports no change in her symptoms since her last visit. Allergies No Known Allergies Allergy (Verified 01/29/25 15:27) Medication List - Last Reconciled 01/29/25 by Jane Spence PA-C No Known Home Meds HPI HPI TH- RT knee MRI review: Details: 24-year-old female presents today for a follow-up right knee MRI via telehealth. The patient states she continues to have sensations of instability but has not had any recent dislocations. He continues to use her knee brace and has been working on strengthening exercises. [facility] Medical History (Updated 01/01/25 @ 10:33 by Jane Spence PA-C) No pertinent past medical history Surgical History H/O eye surgery Family History (Updated 10/07/23 @ 10:20 by Ivania Tobin [facility]) Father Substance abuse in family Mother Substance abuse in family Social History (Updated 01/01/25 @ 10:11 by JO-ANN Gardner) Household Members: None Both parents involved: No Caregiver staying overnight: No Housing: House Are you a primary childbirth and infant care teacher to a significant other at home: No Do you presently have visiting nurse or other home services: No 75 years or older and lives alone: No Alcohol intake: current Comment: on occasion Patient Tobacco Use Status: Never used Tobacco e-Cigarette/Vaping Use: Never Used Special kamlesh needs: No service: No Current occupational status: employed Current occupation: [employer] Cognitive needs: No Hearing needs: No Vision needs: No Female Reproductive History Menstrual Age of Menarche: 16 Review of Systems Const All systems reviewed & are unremarkable except as noted in HPI and below Physical Exam Vital Signs: BMI result Body Mass Index 30.6 Const General: cooperative and no acute distress Orientation/consciousness: patient oriented x3 Resp Effort & Inspection: normal respiratory effort and able to speak in complete sentences Cardio Peripheral pulses: Peripheral pulses 2+ throughout Neuro General: patient oriented x3 Telehealth Telehealth Telehealth Platform: [employer] (video) Location of provider rendering services: practice address Patient Identification confirmed using: Name, : Yes Telehealth method: video Patient verbally consented to treatment: Yes Patient verbally consented to billing insurance company: Yes Patient informed of any privacy concerns related to visit: Yes Minutes spent on Phone/Video with Pt.: 10 Assessment & Plan Assessment & Plan (1) Recurrent subluxation of patella: Code(s): M22.10 - Recurrent subluxation of patella, unspecified knee Category: Medical Plan: MRI images were reviewed with the patient via telehealth/video. I explained to the patient the anatomy of her patella femoral joint does predispose her to subluxation/dislocations. I encouraged her to continue working on her therapy exercises along with the brace as she does find this helpful. I explained to the patient there isn't a great surgery for this condition as symptoms could be recurrent with her anatomy. She does express understanding and if there is any questions or concerns she will contact our office otherwise she will follow up as needed. Coding Level of Care Code Tele Est Pt Level 3 (10140) Complex EM visit Add On G2211 Diagnoses Recurrent subluxation of patella M22.10
[2025-01-29 15:26] VITALS: BMI 30.6
--- OUTSIDE RECORDS SUMMARY | 2025-01-29 15:44 | XMS_ITS | Clinical Summary ---
Author Organization [facility] Address [address] [place] [phone] Phone Care Team Providers Care Electrical Controls Engineer Name Role Phone Unavailable Primary Care Provider [...] regular cycle 03/10/2018 Overview (03/10/2018): Followed by [facility] HELPER provider in [place]. Mom aware pt is on OCPs. Body [...] Vaccine (1 of 2 - Standard) 2018 COVID-19 Vaccine ( - season) 2024 Influenza Vaccines (#1) 2025 03/15/20 20, 06/06/2015, 04/29/2011, Additional history exists DTaP,Tdap,and Td Vaccines (7 - Td or [...] Completed 03/16/2019, 015 Procedures * Due to [facility] law, this organization might not be sharing sensitive test results. Procedure Name Priority Date/Time Associated Diagnosis Comments CHLAMYDIA AND GONORRHEA, AMPLIFIED Routine 03/16/2019 11:29 AM EDT Screening examination for bacterial and spirochetal disease from Last 3 Months or Most Recently Relevant to Health Maintenance Results * Due to [place] [employer] law, this organization might not be sharing sensitive test results. * Chlamydia and Gonorrhoea, Amplified (03/16/2019 11:29 AM EDT) Chlamydia Trachomatis, DNA Probe NEGATIVE (NEG) [facility] Comment: No Chlamydia Trachomatis RNA detected in this patient's sample (REFERENCE RANGE/NORMAL VALUE: NOT DETECTED) Note: This test uses biodiesel product manager- mediated amplification method to detect rRNA from C. Trachomatis URINE GC AMP PROBE NEGATIVE (NEG) [facility] Comment: No Neisseria Gonorrhoeae RNA detected in this patient's sample (REFERENCE RANGE/NORMAL VALUE: NOT DETECTED) NOTE: This test uses biodiesel product manager-mediated amplification method to detect rRNA from N.Gonorrhoeae. [...] without risk of sexual abuse. Consult the [facility] if needed. Contact phone number . Therapeutic failure or success cannot be determined with the Aptima Combo2 assay since nucleic acid may persist following appropriate antimicrobial therapy. The Centers for Disease Control and Prevention (CDC) recommends confirmatory retesting using culture or a different nucleic acid amplification test when positive results occur, if indicated. Testing performed or reported by [facility], a Service of [facility], [facility] [place] [address] Urine 03/16/2019 11:2 9 AM EDT 03/16/2019 4:39 PM EDT Aliyah Nunez NP LAB MICROBIOLOGY - GENERA L ORDERABLES Final Result [facility] from Last 3 Months or Most Recently Relevant to Health Maintenance Insurance [facility] NON PCC
== END 2025-01-29 15:35 | disposition home or self-care (01) ==
LOC: HO.HOS 15:24
PROVIDERS: PCP Family Medicine; Visit Provider Physician Assistant
DX: M22.10 Recurrent subluxation of patella, unspecified knee (principal)
CPT/HCPCS: 98966

== ENCOUNTER → 2025-01-29 15:24 | Outpatient (BNVA) | payer BC, SELFPAY | PROVIDERS: PCP Family Medicine; Visit Provider Physician Assistant | DX: Z71.2 Person consulting for explanation of examination or test findings (principal); M22.11 Recurrent subluxation of patella, right knee | CPT/HCPCS: 98966 ==